=== PATIENT | female | born 1970 | race Caucasian/White ===

== ENCOUNTER 2018-12-10 08:10 | Day surgery (SDC) | payer BC ==
[2018-12-08 15:33] VITALS: BMI 21.6
[2018-12-10] MEDS ORDERED: PROPOFOL 20 ML ONE ×2 (08:21)
[2018-12-10 09:55] VITALS: TEMP 97.7
[2018-12-10 10:27] VITALS: BP 123/71; PULSE 68
--- NOTE | 2018-12-21 09:43 | PATH ---
Surgical Pathology Report Patient Name: AVEL LEVY [facility] Rec. #: [id number] /Age/Gender: 1970 (Age: 48) / F Account: [id number] Location: [facility] Taken: 12/10/2018 Received: 12/10/2018 Reported: 12/21/2018 Physicians: Beau Sauceda M.D. Specimen(s) Received A: SECOND PORTION OF DUODENUM B: GASTRIC ANTRUM Clinical History ERD, screening. Postoperative diagnosis: Mild gastritis, normal colon Final Diagnosis A. SECOND PORTION OF DUODENUM, BIOPSY: MILD CHRONIC DUODENITIS. B. GASTRIC ANTRUM, BIOPSY: MILD CHRONIC GASTRITIS WITH FEATURES OF REACTIVE GASTROPATHY. IMMUNOSTAIN IS NEGATIVE FOR H. PYLORI ORGANISMS. Electronically Signed Kathy Burroughs M.D. Gross Description A. Received in formalin, labeled "second portion of duodenum" is a prieto, irregular portion of soft tissue measuring 0.3 cm. in greatest dimension. The specimen is submitted in toto in one cassette. B. Received in formalin, labeled "gastric antrum" is a prieto, irregular portion of soft tissue measuring 0.3 cm. in greatest dimension. The specimen is submitted in toto in one cassette. AE/12/11/2018 ebram/12/11/2018
== END 2018-12-10 10:35 | disposition home or self-care (01) ==
LOC: FASU-ENDO 08:10
PROVIDERS: ATTEND Internal Medicine Gastroenterology
PROC: 0DB98ZX Excision of Duodenum, Via Natural or Artificial Opening Endoscopic, Diagnostic (ICD-10-PCS; 2018-12-10)
PROC: 0DB68ZX Excision of Stomach, Via Natural or Artificial Opening Endoscopic, Diagnostic (ICD-10-PCS; 2018-12-10)
PROC: 0DJD8ZZ Inspection of Lower Intestinal Tract, Via Natural or Artificial Opening Endoscopic (ICD-10-PCS; principal; 2018-12-10 09:12)
DX: Z12.11 Encounter for screening for malignant neoplasm of colon (principal); K29.50 Unspecified chronic gastritis without bleeding; K29.80 Duodenitis without bleeding; R12 Heartburn
CPT/HCPCS: 84703; 88305-TC; 88342-TC

== ENCOUNTER → 2022-01-03 | Day surgery (SDC) | payer BC | END | disposition home or self-care (01) | LOC: FMAMMOTONE 13:03 | PROVIDERS: ATTEND Internal Medicine | PROC: 0HBU3ZX Excision of Left Breast, Percutaneous Approach, Diagnostic (ICD-10-PCS; principal; 2022-01-03) | DX: N60.92 Unspecified benign mammary dysplasia of left breast (principal); N64.89 Other specified disorders of breast; R92.0 Mammographic microcalcification found on diagnostic imaging of breast | CPT/HCPCS: 19081; 76098-TC-FY; 87899; 88305-TC; A4648 ==